=== PATIENT | female | born 1980 | race Caucasian/White ===

== ENCOUNTER → 2017-05-28 | Outpatient (CLI) | payer BC ==
--- NOTE | 2017-05-28 12:08 | MM ---
Reason for exam: additional evaluation requested from prior study. Last mammogram was performed 1 year and 7 months ago. History: Family history of breast cancer in paternal aunt and breast cancer in paternal grandmother at age 45. Taking progesterone for 3 years. Physical Findings: Nurse Summary: 1cm nodule in the right breast at 11 o'clock (nurse mj). MG 3D Diag Mammo W/Cad GORDY Bilateral CC and MLO view(s) were taken. ML, spot compression CC, and spot compression MLO view(s) were taken of the right breast. Prior study comparison: November 05, 2015, bilateral MG 3d diag mammo w/cad G[facility]. March 12, 2014, bilateral MG diagnostic mammo w CAD GORDY. There are scattered fibroglandular densities. Palpable marker right upper outer quadrant. Asymmetric density laterally and posteriorly does not persists on spot 3D. Isodense 9mm mass appear circumscribed on 3D in the central 8-9 o'clock position and was not clearly seen previously. Ultrasound recommended. These results were verbally communicated with the patient and result sheet given to the patient on 05/28/17. ASSESSMENT: Incomplete: need additional imaging evaluation, BI-RAD 0 RECOMMENDATION: Ultrasound of the right breast.
--- NOTE | 2017-05-28 12:11 | USB ---
Reason for exam: additional evaluation requested from abnormal screening. History: Family history of breast cancer in paternal aunt and breast cancer in paternal grandmother at age 45. Taking progesterone for 3 years. US Breast Limited RT Right breast ultrasound demonstrates a 0.4 x 0.2 x 0.4cm lesion too small to characterize at 8 o'clock. The 9mm oval circumscribed and isodense asymmetry is not seen by ultrasound. 6 month follow up recommended. These results were verbally communicated with the patient and result sheet given to the patient on 05/28/17. ASSESSMENT: Probably benign, BI-RAD 3 RECOMMENDATION: Follow-up diagnostic mammogram of the right breast in 6 months.
== END | disposition home or self-care (01) ==
LOC: RADMAMWWP 09:27
PROVIDERS: ATTEND Obstetrics & Gynecology
DX: R92.8 Other abnormal and inconclusive findings on diagnostic imaging of breast (principal)
CPT/HCPCS: 77066; 76642; G0279

== ENCOUNTER → 2017-11-13 | Outpatient (CLI) | payer BC ==
--- NOTE | 2017-11-13 09:38 | MM ---
Reason for exam: follow-up at short interval from prior study. Last mammogram was performed 6 months ago. History: Family history of breast cancer in paternal aunt and breast cancer in paternal grandmother at age 45. Taking progesterone for 3 years. Physical Findings: Nurse did not find any significant physical abnormalities on exam. MG 3D Diag Mammo W/Cad RT CC, MLO, and XCCL view(s) were taken of the right breast. Prior study comparison: May 28, 2017, bilateral MG 3d diag mammo w/cad [facility]. November 05, 2015, bilateral MG 3d diag mammo w/cad G[facility]. The breast tissue is heterogeneously dense. This may lower the sensitivity of mammography. There is a stable 5mm mass upper outer quadrant middle depth 4.3cm from nipple in comparison, not seen on prior ultrasound or exam of 2016, probably benign. Lateral asymmetry at posterior depth resolves on additional views. These results were verbally communicated with the patient and result sheet given to the patient on 11/13/17. ASSESSMENT: Probably benign, BI-RAD 3 RECOMMENDATION: Follow-up diagnostic mammogram of both breasts in 6 months.
== END | disposition home or self-care (01) ==
LOC: RADMAMWWP 08:46
PROVIDERS: ATTEND Obstetrics & Gynecology
DX: R92.8 Other abnormal and inconclusive findings on diagnostic imaging of breast (principal)
CPT/HCPCS: 77061; 77065

== ENCOUNTER → 2018-06-06 | Outpatient (CLI) | payer BC ==
--- NOTE | 2018-06-09 09:39 | MM ---
Reason for exam: follow-up at short interval from prior study. Last mammogram was performed 7 months ago. History: Family history of breast cancer in paternal aunt and breast cancer in paternal grandmother at age 45. Took progesterone for 3 years. Physical Findings: Nurse did not find any significant physical abnormalities on exam. MG 3D Diag Mammo W/Cad GORDY Bilateral CC and MLO view(s) were taken. Prior study comparison: November 13, 2017, right breast MG 3d diag mammo w/cad RT. May 28, 2017, bilateral MG 3d diag mammo w/cad GORDY. The breast tissue is heterogeneously dense. This may lower the sensitivity of mammography. No significant new finding when compared with prior studies. These results were verbally communicated with the patient and result sheet given to the patient on 06/06/18. ASSESSMENT: Benign, BI-RAD 2 RECOMMENDATION: Routine screening mammogram of both breasts in 1 year.
== END ==
LOC: RADMAMWWP 12:40
PROVIDERS: ATTEND Obstetrics & Gynecology
DX: R92.8 Other abnormal and inconclusive findings on diagnostic imaging of breast (principal)
CPT/HCPCS: 77062; 77066

== ENCOUNTER → 2019-04-15 | Outpatient (CLI) | payer BC ==
[2019-04-15 16:21] LABS: Thyroid Peroxidase Antibodies <28.0 U/mL (0.0-60.0)
[2019-04-15 16:53] LABS: Gliadin AB IgA, Deaminated NEGATIVE (NEGATIVE); Gliadin AB IgA, Unit <0.2 U/mL; Gliadin AB IgG, Deaminated NEGATIVE (NEGATIVE)
[2019-04-15 17:01] LABS: Codfish IgE <0.10 kU/L; Dermato. farinae IgE <0.10 kU/L; Egg White IgE <0.10 kU/L; Walnut IgE (Food) <0.10 kU/L
[2019-04-16 11:57] LABS: Almond IgE <0.10 kU/L (<0.10); Almond IgE Class CLASS 0
[2019-04-16 11:58] LABS: Cashew IgE <0.10 kU/L (<0.10); Cashew IgE Class CLASS 0; Pecan IgE <0.10 kU/L (<0.10); Pecan IgE Class CLASS 0
[2019-04-16 11:59] LABS: Pistachio IgE Class CLASS 0; Salmon IgE <0.10 kU/L (<0.10); Salmon IgE Class CLASS 0
[2019-04-16 12:00] LABS: Chicken IgE Class CLASS 0; Green Bean IgE <0.10 kU/L (<0.10); Green Bean IgE Class CLASS 0
== END | disposition home or self-care (01) ==
LOC: LABWHC1 10:57
PROVIDERS: ATTEND Allergy & Immunology
DX: L50.9 Urticaria, unspecified (principal); R53.83 Other fatigue; Z91.018 Allergy to other foods
CPT/HCPCS: 36415; 82784; 83516; 84436; 84439; 84443; 86003; 86376; 86800; 88184; 88185

== ENCOUNTER → 2019-05-15 | Outpatient (CLI) | payer BC ==
[2019-05-15 09:31] LABS: Basophils % (A) 1 %; Eosinophils # (A) 0.1 k/uL (0-0.7); Eosinophils % (A) 2 %; HCT 40.5 % (34.0-46.0); HGB 13.6 gm/dL (11.4-16.0); Lymphocytes # (A) 1.8 k/uL (1.0-4.8); Lymphocytes % (A) 24 %; MCH 30.5 pg (25.0-35.0); MCHC 33.6 g/dL (31.0-37.0); MCV 90.7 fL (80.0-100.0); Mean Platelet Volume 8.2; Monocytes # (A) 0.4 k/uL (0-1.0); Monocytes % (A) 5 %; Neutrophils % (A) 67 %; Platelet Count 228 k/uL (150-450); RBC 4.47 m/uL (3.80-5.40); WBC 7.5 k/uL (3.8-10.6)
[2019-05-15 17:49] LABS: African American GFR (CKD) 106.1 (60.0-200.0); Albumin 4.3 g/dL (3.80-4.90); Albumin/Globulin Ratio 2.87 (1.60-3.17); Anion Gap 5.3 mmol/L (4.00-12.00); BUN/Creat Ratio 16.25 Ratio (12.00-20.00); Calcium 8.6 mg/dL (8.7-10.3); Carbon Dioxide 26.7 mmol/L (21.6-31.8); Globulin 1.5 g/dL (1.6-3.3); Non-African American GFR(CKD) 91.6 (60.0-200.0); Potassium 4.1 mmol/L (3.5-5.5); Total Bilirubin 0.5 mg/dL (0.3-1.2); Total Protein 5.8 g/dL (6.2-8.2)
[2019-05-16 12:15] LABS: Immunoglobulin M 57.4 mg/dL (40.0-280.0)
== END | disposition home or self-care (01) ==
LOC: LABWHC1 08:44
PROVIDERS: ATTEND Allergy & Immunology
DX: L50.1 Idiopathic urticaria (principal)
CPT/HCPCS: 36415; 80053; 82784; 82785; 83520; 85025; 86038; 86160; 86162

== ENCOUNTER → 2019-05-23 | Outpatient (CLI) | payer BC ==
--- NOTE | 2019-05-24 16:17 | US ---
EXAMINATION TYPE: US thyroid st tissue head/neck DATE OF EXAM: 05/23/2019 COMPARISON: NONE CLINICAL HISTORY: E04.9 Nontoxic goiter, unspecified. Dermatographic urticaria per patient. GLAND SIZE: Right Lobe: 4.7 x 1.8 x 2.0 cm Overall Parenchyma: homogenous Left Lobe: 4.7 x 2.0 x 1.6 cm Overall Parenchyma: homogeneous Isthmus Thickness: 0.3 cm No thyroid nodules were observed by US. Bilateral neck scanned: no evidence of lymphadenopathy. Slightly heterogeneous normal-sized thyroid without discrete nodule identified. IMPRESSION: As above.
== END | disposition home or self-care (01) ==
LOC: RADUSWWP 15:18
PROVIDERS: ATTEND Allergy & Immunology
DX: E04.9 Nontoxic goiter, unspecified (principal)
CPT/HCPCS: 76536

== ENCOUNTER → 2020-02-12 | Outpatient (CLI) | payer BC ==
--- NOTE | 2020-02-13 11:22 | MM ---
Reason for exam: screening (asymptomatic). Last mammogram was performed 1 year and 8 months ago. History: Family history of breast cancer in paternal aunt and breast cancer in paternal grandmother at age 45. Took progesterone for 3 years. Physical Findings: A clinical breast exam by your physician is recommended on an annual basis and results should be correlated with mammographic findings. MG 3D Screening Mammo W/Cad Bilateral CC and MLO view(s) were taken. Prior study comparison: June 06, 2018, bilateral MG 3d diag mammo w/cad GORD[facility]. November 13, 2017, right breast MG 3d diag mammo w/cad RT. The breast tissue is heterogeneously dense. This may lower the sensitivity of mammography. Focal asymmetry upper outer right breast. No significant changes when compared with prior studies. ASSESSMENT: Benign, BI-RAD 2 RECOMMENDATION: Routine screening mammogram of both breasts in 1 year.
== END | disposition home or self-care (01) ==
LOC: RADMAMWWP 09:09
PROVIDERS: ATTEND Obstetrics & Gynecology
DX: Z12.31 Encounter for screening mammogram for malignant neoplasm of breast (principal)
CPT/HCPCS: 77063; 77067

== ENCOUNTER → 2021-12-03 | Outpatient (CLI) | payer BC ==
[2021-12-03 17:08] LABS: Basophils # (A) 0.07 X 10*3/uL (0.00-0.10); Basophils % (A) 0.9 %; Eosinophils # (A) 0.24 X 10*3/uL (0.04-0.35); Eosinophils % (A) 3.1 %; HCT 41.7 % (37.2-46.3); HGB 12.9 g/dL (12.0-15.0); Immature Grans, Automated 0.4 %; Lymphocytes # (A) 1.87 X 10*3/uL (0.90-5.00); Lymphocytes % (A) 24.2 %; MCH 27.6 pg (27.0-32.0); MCHC 30.9 g/dL (32.0-37.0); MCV 89.3 fL (80.0-97.0); Mean Platelet Volume 11.8 fL (9.5-12.2); Monocytes # (A) 0.43 X 10*3/uL (0.20-1.00); Monocytes % (A) 5.6 %; NRBC Per 100 WBC 0 /100 WBCS (0.0-0.0); Neutrophils % (A) 65.8 %; Platelet Count 258 X 10*3/uL (140-440); RBC 4.67 X 10*6/uL (4.10-5.20); RDW 13.2 % (11.5-14.5); WBC 7.74 X 10*3/uL (4.50-10.00)
[2021-12-03 17:16] LABS: Erythrocyte Sedimentation Rate 3 mm/Hr (0-20)
[2021-12-03 17:23] LABS: African American GFR (CKD) 106.4 (60.0-200.0); Albumin 4.2 g/dL (3.8-4.9); Albumin/Globulin Ratio 2.25 (1.60-3.17); Anion Gap 8.7 mmol/L (10.00-18.00); BUN/Creat Ratio 10.08 Ratio (12.00-20.00); Calcium 9.1 mg/dL (8.7-10.3); Carbon Dioxide 26.2 mmol/L (20.0-27.5); Globulin 1.9 g/dL (1.6-3.3); Non-African American GFR(CKD) 91.8 (60.0-200.0); Potassium 4.1 mmol/L (3.5-5.5); T4, Free (Free Thyroxine) 1.03 ng/dL (0.800-1.800); Total Bilirubin 0.3 mg/dL (0.30-1.20)
[2021-12-03 17:27] LABS: Thyroid Peroxidase Antibodies <9.0 U/mL (0.0-33.0)
[2021-12-06 15:01] LABS: Alt. alternata IgE Class CLASS 0; Alternaria alternata IgE <0.10 kU/L (<0.10); Asperg. fumagatus IgE <0.10 kU/L (<0.10); Asperg. fumagatus IgE Class CLASS 0; Birch(Com.Silvr) IgE <0.10 kU/L (<0.10); Birch(Com.Silvr) IgE Class CLASS 0; Cat Epith & Dander IgE 0.34 kU/L (<0.10); Cat Epith & Dander IgE Class CLASS 0/1; Clad herbarum IgE <0.10 kU/L (<0.10); Clad herbarum IgE Class CLASS 0; Cockroach IgE <0.10 kU/L (<0.10); Cottonwood IgE 0.27 kU/L (<0.10); Dermato. Pteronyssinus Class CLASS 0; Dermato. Pteronyssinus IgE <0.10 kU/L (<0.10); Dermato. farinae IgE <0.10 kU/L (<0.10); Dermato. farinae IgE Class CLASS 0; Dog Dander IgE <0.10 kU/L (<0.10); Elm IgE <0.10 kU/L (<0.10); IgE (Allergen) 25.1 IU/mL (<114.0); Maple (Box Elder) IgE <0.10 kU/L (<0.10); Maple (Box Elder) IgE Class CLASS 0; Mountain Cedar IgE <0.10 kU/L (<0.10); Mountain Cedar IgE Class CLASS 0; Mouse Urine IgE Class CLASS 0; Mouse Urine Proteins,IgE <0.10 kU/L (<0.10); Nettle IgE <0.10 kU/L (<0.10); Nettle IgE Class CLASS 0; Oak IgE <0.10 kU/L (<0.10); Penicillium chrysogenum IgE <0.10 kU/L (<0.10); Penicillium chrysogenum IgE Cl CLASS 0; Rough Marshelder IgE <0.10 kU/L (<0.10); Rough Marshelder IgE Class CLASS 0; Timothy Grass IgE 1.62 kU/L (<0.10); Timothy Grass IgE Class CLASS 2; White Ash IgE Class CLASS 0
== END | disposition home or self-care (01) ==
LOC: LABWHC1 10:38
PROVIDERS: ATTEND Nurse Practitioner Family
DX: L50.3 Dermatographic urticaria (principal); L29.9 Pruritus, unspecified
CPT/HCPCS: 36415; 80053; 82785; 83970; 84439; 84443; 85025; 85652; 86003; 86038; 86376; 86800

== ENCOUNTER → 2022-02-16 | Outpatient (CLI) | payer BC ==
--- NOTE | 2022-02-16 11:38 | MM ---
Reason for Exam: Screening (asymptomatic). Last mammogram was performed 2 year(s) and 0 month(s) ago. Patient History: Menarche at age 10. First Full-Term at age 22. Patient used Progesterone for 3 years. Paternal grandmother had breast cancer, age 45. Paternal aunt had breast cancer. Last menstrual period: 02/11/2022 Risk Values: Madelin 5 year model risk: 0.6%. NCI Lifetime model risk: 8.8%. Prior Study Comparison: 11/13/2017 Right Diagnostic Mammogram, [facility]. 06/06/2018 Bilateral Diagnostic Mammogram, [facility]. 02/12/2020 Bilateral Screening Mammogram, [facility]. Tissue Density: The breast tissue is heterogeneously dense. This may lower the sensitivity of mammography. Findings: Analyzed By CAD. There is no suspicious group of microcalcifications or new suspicious mass in either breast. Stable chronic nodularity in the left breast. Stable focal asymmetry in the upper outer right breast. Overall Assessment: Benign, BI-RAD 2 Management: Screening Mammogram of both breasts in 1 year. A clinical breast exam by your physician is recommended on an annual basis and results should be correlated with mammographic findings. Electronically signed and approved by: Yaw Workman D.O.
== END | disposition home or self-care (01) ==
LOC: RADMAMWWP 06:54
PROVIDERS: ATTEND Obstetrics & Gynecology Obstetrics
DX: Z12.31 Encounter for screening mammogram for malignant neoplasm of breast (principal); Z80.3 Family history of malignant neoplasm of breast
CPT/HCPCS: 77063; 77067

== ENCOUNTER → 2023-05-31 | Outpatient (CLI) | payer BC ==
--- NOTE | 2023-06-01 20:21 | MM ---
Reason for Exam: Screening (asymptomatic). Last mammogram was performed 1 year(s) and 3 month(s) ago. Patient History: Menarche at age 10. First Full-Term at age 32. Late child-bearing (after 30). Premenopausal. Patient has history of breast feeding. Progesterone, starting at age 43. Paternal grandmother had breast cancer, age 45. Paternal aunt had breast cancer. Risk Values: Madelin 5 year model risk: 1.1%. NCI Lifetime model risk: 13.0%. Prior Study Comparison: 05/28/2017 Bilateral Diagnostic Mammogram, [facility]. 11/13/2017 Right Diagnostic Mammogram, [facility]. 06/06/2018 Bilateral Diagnostic Mammogram, [facility]. 02/12/2020 Bilateral Screening Mammogram, [facility]. 02/16/2022 Bilateral MG 3D screening mammo w/cad, [facility]. Tissue Density: There are scattered fibroglandular densities. Findings: Analyzed By CAD. There is no suspicious group of microcalcifications or new suspicious mass in either breast. Overall Assessment: Negative, BI-RAD 1 Management: Screening Mammogram of both breasts in 1 year. . Patient should continue monthly self-breast exams. A clinical breast exam by your physician is recommended on an annual basis. This exam should not preclude additional follow-up of suspicious palpable abnormalities. Note on Madelin scores and lifetime risk: 1. A Madelin score greater than 3% is considered moderate risk. If this is the case, consider specialist referral to assess eligibility for a risk reducing agent. 2. If overall lifetime risk for the development of breast cancer is 20% or higher, the patient may qualify for future screening with alternating mammogram and breast MRI. Electronically signed and approved by: Brittany Barboza M.D. Radiologist
== END | disposition home or self-care (01) ==
LOC: RADMAMWWP 14:01
PROVIDERS: ATTEND Obstetrics & Gynecology Obstetrics
DX: Z12.31 Encounter for screening mammogram for malignant neoplasm of breast (principal); Z80.3 Family history of malignant neoplasm of breast
CPT/HCPCS: 77063; 77067

== ENCOUNTER → 2024-09-17 | Outpatient (CLI) | payer BC ==
--- NOTE | 2024-09-17 07:34 | MM ---
Reason for Exam: Screening (asymptomatic). Last mammogram was performed 1 year(s) and 4 month(s) ago. Patient History: Menarche at age 10. First Full-Term at age 32. Late child-bearing (after 30). Premenopausal. Patient has history of breast feeding. Currently using Progesterone, starting at age 43. Paternal grandmother had breast cancer, age 45. Paternal aunt had breast cancer. Last menstrual period: 09/03/2024 Risk Values: Madelin 5 year model risk: 1.2%. NCI Lifetime model risk: 12.8%. Prior Study Comparison: 02/12/2020 Bilateral Screening Mammogram, [facility]. 02/16/2022 Bilateral MG 3D screening mammo w/cad, [facility]. 05/31/2023 Bilateral MG 3D screening mammo w/cad, [facility]. Tissue Density: The breasts are heterogeneously dense, which may obscure small masses. Findings: Analyzed By CAD. Right breast: There is no suspicious group of microcalcifications or new suspicious mass. Left breast: There is no suspicious group of microcalcifications or new suspicious mass. Overall Assessment: Negative, BI-RAD 1 Management: Screening Mammogram of both breasts in [address] [facility] will attempt to contact patient to return for supplemental views and ultrasound if indicated. Patient should continue monthly self-breast exams. A clinical breast exam by your physician is recommended on an annual basis. This exam should not preclude additional follow-up of suspicious palpable abnormalities. Note on Madelin scores and lifetime risk: 1. A Madelin score greater than 3% is considered moderate risk. If this is the case, consider specialist referral to assess eligibility for a risk reducing agent. 2. If overall lifetime risk for the development of breast cancer is 20% or higher, the patient may qualify for future screening with alternating mammogram and breast MRI. [facility], , 09/17/2024 7:31 AM. Electronically signed and approved by: Obey Phillips DO
== END | disposition home or self-care (01) ==
LOC: RADMAMWWP 07:04
PROVIDERS: ATTEND Obstetrics & Gynecology Obstetrics
DX: Z12.31 Encounter for screening mammogram for malignant neoplasm of breast (principal); R92.333 Mammographic heterogeneous density, bilateral breasts; Z80.3 Family history of malignant neoplasm of breast
CPT/HCPCS: 77063; 77067